=== PATIENT | female | born 1980 | race Caucasian/White ===

== ENCOUNTER 2021-06-29 13:06 | Emergency (ER) | payer OTHER, SELFPAY ==
[2021-06-29 13:38] VITALS: BP 121/71; PULSE 72; RESP 16; TEMP 37; O2SAT 99
== END 2021-06-29 13:58 | disposition left against medical advice (07) ==
PROVIDERS: Emergency Provider Internal Medicine Hematology & Oncology
DX: Z53.21 Procedure and treatment not carried out due to patient leaving prior to being seen by health care provider (principal)
CPT/HCPCS: 99199

== ENCOUNTER 2021-07-15 10:05 | Emergency (ER) | payer OTHER, SELFPAY ==
[2021-07-15 10:26] VITALS: BP 102/63; PULSE 81; RESP 16; TEMP 36.7; O2SAT 100
--- NOTE | 2021-07-15 11:26 | ED.WOUNDLAC ---
HPI - Wound/Laceration General Chief Complaint: Wound/Laceration Stated Complaint: Cat Bite Time Seen by Provider: 07/15/21 11:26 Source: patient Mode of arrival: ambulatory Limitations: no limitations History of Present Illness HPI narrative: Sandy Lomas is a 40 yo female with no PMH who [facility] with a cat bite that occurred within 24 hours, Magdalena collided, she has had a tetanus shot in the last 5 years, left index finger and thumb swelling and tenderness Related Data Allergies Allergy/AdvReac Type Severity Reaction Status Date / Time No Known Allergies Allergy Verified 07/15/21 10:34 Review of Systems Review of Systems: CONSTITUTIONAL: Denies fever, chills, sweats. EYES: Denies visual changes, redness, discharge. ENT: Denies rhinorrhea, congestion, sore throat, otalgia. CARDIOVASCULAR: Denies chest pain, palpitations, edema. RESPIRATORY: Denies dyspnea, wheezing, cough GASTROINTESTINAL: Denies abdominal pain, nausea, vomiting, diarrhea. GENITOURINARY: Denies dysuria, hematuria, abnormal discharge SKIN: Denies rash or itching. NEUROLOGIC: Denies numbness, or focal weakness. PSYCHIATRIC: Denies anxiety or depression. Index and thumb tenderness due to cat bite PMFSH Past Medical History Medical History No acute medical problems Social History Social History (Updated 07/15/21 @ 11:35 by Kandi Ashton CNP) Smoking status: Never smoker Alcohol intake: current Comments At time of signature, I agree with nursing past medical, surgical, social and family history. There is no relevant family history pertinent to the presenting complaint. Exam Narrative: GENERAL: This is a well-nourished, well-developed patient, in mild distress. HEAD: normocephalic, atraumatic. EYES: Sclera clear/white. Vision is grossly intact. EARS: External ears normal,. Hearing grossly intact. NOSE: External nose normal without nasal discharge, nares without redness, no rhinorrhea. THROAT: Mucous membranes moist, NECK: Neck supple, non-tender CARDIOVASCULAR: Regular rate and rhythm without murmurs, gallops, or rubs. RESPIRATORY: Clear to auscultation. Breath sounds equal bilaterally. No wheezes, rales, or rhonchi. GASTROINTESTINAL: Abdomen soft, SKIN: warm, intact with no suspicious lesions or rash, good texture and turgor. Swollen left index finger and the area of between index finger and thumb, erythema, tender to touch NEURO: awake, alert, and oriented to person, place and time. There were no obvious focal neurologic abnormalities. Steady gait EXTREMITIES: Normal range of motion. BACK: Nontender without deformity Course Course Emergency Course: Cat bite to left hand that occurred yesterday Now red and swollen, started on Augmentin and [place] Level of Care: Express Care Visit Vital Signs Vital signs: Vital Signs Temperature 98.1 F 07/15/21 10:26 Pulse Rate 81 07/15/21 10:26 Respiratory Rate 16 07/15/21 10:26 Blood Pressure 102/63 07/15/21 10:26 Pulse Oximetry 100 07/15/21 10:26 Temperature 98.1 F 07/15/21 10:26 Pulse Rate 81 07/15/21 10:26 Respiratory Rate 16 07/15/21 10:26 Blood Pressure 102/63 07/15/21 10:26 Pulse Oximetry 100 07/15/21 10:26 MDM - Wound/Laceration Differential Diagnosis Differential diagnosis: Likely laceration, abscess, avulsion of skin and other Critical Care Time Critical Care Time Critical Care Time: No Discharge Plan Discharge Clinical Impression: Cat bite Qualifiers: Encounter type: initial encounter Qualified Code(s): W55.01XA - Bitten by cat, initial encounter Cellulitis Qualifiers: Site of cellulitis: extremity Site of cellulitis of extremity: finger Laterality: left Qualified Code(s): L03.012 - Cellulitis of left finger Patient Disposition: Home, Self-Care Condition: Stable Instructions: Antibiotic Form, Animal Bite (ED) Prescriptions: New amoxicillin-pot c
== END 2021-07-15 11:45 | disposition home or self-care (01) ==
PROVIDERS: Emergency Provider Nurse Practitioner
DX: S61.251A Open bite of left index finger without damage to nail, initial encounter (principal); S61.052A Open bite of left thumb without damage to nail, initial encounter; W55.01XA Bitten by cat, initial encounter; L03.012 Cellulitis of left finger
CPT/HCPCS: 99213; G0463